=== PATIENT | male | born 1960 | race Caucasian/White ===

== ENCOUNTER → 2016-12-12 | Outpatient (CLI) | payer OTHER | END | disposition home or self-care (01) | LOC: CFH 08:47 | PROVIDERS: ATTEND Physician Assistant | DX: I08.1 Rheumatic disorders of both mitral and tricuspid valves (principal) | CPT/HCPCS: 93306 ==

== ENCOUNTER → 2017-01-26 | Outpatient (CLI) | payer OTHER ==
[~2017-01-26] MED LIST: ALPR1TAB2 PO; ASPI-621 PO; CHOL10003 PO; DICL50PO5 PO; FLUO20TA25 PO; HYDR-3307 PO; HYDR-879 PO; LISI-170 PO; LISI1TAB5 PO; MELO15TA24 PO; OMEG-14 PO; OXYB5TAB7 PO; OXYC-302 PO
[2017-01-26 10:31] LABS: ASPARTATE AMINO TRANSFERASE 11 U/L (15-37); BLOOD UREA NITROGEN 13 mg/dL (7-18)
== END | disposition home or self-care (01) ==
LOC: STAR 09:24
PROVIDERS: ATTEND Orthopaedic Surgery
DX: M75.122 Complete rotator cuff tear or rupture of left shoulder, not specified as traumatic (principal); M75.42 Impingement syndrome of left shoulder
CPT/HCPCS: 36415; 80053

== ENCOUNTER 2017-01-30 05:49 | Inpatient (IN) | payer OTHER ==
[~2017-01-30] VITALS: Ht 172.7 cm; Wt 107.3 kg
[~2017-01-30 05:49] MED LIST changes: -ALPR1TAB2 PO; -DICL50PO5 PO; -HYDR-879 PO; -LISI1TAB5 PO; -MELO15TA24 PO; -OXYC-302 PO
[2017-01-30] MEDS ORDERED: FENTANYL PF 100 MCG/2ML ONE ×3 (06:06→09:44)
[2017-01-30] MEDS ORDERED: MIDAZOLAM 1 MG/ML, 2ML ONE (06:07)
[2017-01-30] MEDS ORDERED: LACTATED RINGERS 1,000 ML IV SCH (06:11)
[2017-01-30] MEDS ORDERED: BUPIVACAINE/PF 0.5% ONE ×2 (06:12→08:47)
[2017-01-30] MEDS ORDERED: LIDOCAINE/PF 1%, 30ML ONE (06:12)
[2017-01-30] MEDS ORDERED: EPINEPHRINE 1 MG/ML, 1ML ONE (06:13)
[2017-01-30 06:29] VITALS: BP 163/68
[2017-01-30] MEDS ORDERED: HYDROcodone/APAP 10/325 MG TABLET PO SCH (07:00)
[2017-01-30] MEDS ORDERED: PROPOFOL 10 MG/ML, 20ML ONE (07:20)
[2017-01-30] MEDS ORDERED: SUCCINYLCHOLINE 20 MG/ML, 10ML ONE (07:20)
[2017-01-30] MEDS ORDERED: CEFAZOLIN 1,000 MG ONE (07:20)
[2017-01-30] MEDS ORDERED: DEXAMETHASONE 4 MG/ML, 1ML ONE (07:20)
[2017-01-30] MEDS ORDERED: ROCURONIUM 10 MG/ML,10ML ONE (07:20)
[2017-01-30] MEDS ORDERED: ONDANSETRON 2MG/ML, 2ML ONE (07:20)
[2017-01-30] MEDS ORDERED: EPHEDRINE 50 MG/ML, 1ML ONE (07:20)
[2017-01-30] MEDS ORDERED: NEOSTIGMINE 1 MG/ML, 10ML ONE (07:20)
[2017-01-30] MEDS ORDERED: GLYCOPYRROLATE 0.2MG/1ML, 5ML ONE (07:20)
[2017-01-30] MEDS ORDERED: LIDOCAINE 1%-EPI 1:100K, 30ML INFIL ONE (07:29)
[2017-01-30] MEDS ORDERED: BUPIVACAINE/PF-EPI 0.5% 1:200K INFIL ONE (07:30)
[2017-01-30] MEDS ORDERED: DIAZEPAM 5 MG/ML, 2ML IVPush PRN (08:00)
[2017-01-30] MEDS ORDERED: EPHEDRINE 50 MG/ML, 1ML IVPush PRN (08:00)
[2017-01-30] MEDS ORDERED: MEPERIDINE/PF 25MG/0.5ML IVPush PRN (08:00)
[2017-01-30] MEDS ORDERED: hydrALAzine 20 MG/ML, 1ML IV PRN (08:00)
[2017-01-30] MEDS ORDERED: HYDROmorphone 1 MG/ML, 1ML IV PRN (08:00)
[2017-01-30] MEDS ORDERED: HYDROcodone/APAP 7.5-325MG/15ML UDC PO PRN (08:00)
[2017-01-30] MEDS ORDERED: PROMETHAZINE 25 MG/ML, 1ML IV PRN (08:00)
[2017-01-30] MEDS ORDERED: LABETALOL 5MG/ML, 20ML IV PRN (08:00)
[2017-01-30] MEDS ORDERED: OXYcodone 5 MG/5 ML ORAL.SOL UDC PO PRN (08:00)
[2017-01-30] MEDS ORDERED: METOPROLOL 1 MG/ML, 5ML IV PRN (08:00)
[2017-01-30] MEDS ORDERED: ALBUTEROL SULFATE 2.5 MG/3 ML NPPB PRN (08:00)
[2017-01-30] MEDS ORDERED: MIDAZOLAM 1 MG/ML, 2ML IV PRN (08:00)
[2017-01-30] MEDS ORDERED: ACETAMINOPHEN 325 MG TABLET PO PRN (08:00)
[2017-01-30] MEDS ORDERED: FENTANYL PF 100 MCG/2ML IV PRN (08:00)
[2017-01-30] MEDS ORDERED: ONDANSETRON 2MG/ML, 2ML IVPush PRN ×2 (08:00→15:00)
[2017-01-30] MEDS ORDERED: LIDOCAINE-MPF 2% ,5ML ONE ×2 (08:47)
[2017-01-30] MEDS ORDERED: OXYBUTYNIN CHLORIDE 5 MG TABLET PO SCH (09:00)
[2017-01-30] MEDS ORDERED: OXYcodone 5 MG/5 ML ORAL.SOL UDC ONE (09:44)
[2017-01-30] MEDS ORDERED: ACETAMINOPHEN 650 MG/20.3 ML UDC ONE (09:44)
[2017-01-30] MEDS ORDERED: MEPERIDINE/PF 25MG/0.5ML ONE (09:57)
[2017-01-30 13:31] VITALS: BP 180/93
[2017-01-30] MEDS ORDERED: GUAIFENESIN/DM 200-20MG, 10ML UDC PO PRN (15:00)
[2017-01-30] MEDS ORDERED: ONDANSETRON ODT 4 MG PO PRN (15:00)
[2017-01-30] MEDS: ENOXAPARIN 40 MG/0.4 ML SQ SCH (15:00)
[2017-01-30 15:21] LABS: HEMATOCRIT 42.8 % (39.2-51.8); HEMOGLOBIN 14.4 g/dL (13.7-18.0); WHITE BLOOD COUNT 12.9 x10^3/uL (3.4-10)
[2017-01-30] MEDS ORDERED: MORPHINE SULFATE 4 MG/ML, 1ML IVPush ONE (15:30)
[2017-01-30] MEDS ORDERED: LORazepam 2 MG/ML, 1ML IVPush ONE (15:30)
[2017-01-30 15:34] LABS: BLOOD UREA NITROGEN 17 mg/dL (7-18)
[2017-01-30 15:43] LABS: ASPARTATE AMINO TRANSFERASE 17 U/L (15-37)
[2017-01-30] MEDS ORDERED: LISI1TAB5 PO (15:49)
[2017-01-30] MEDS ORDERED: ALPR1TAB2 PO (15:49)
[2017-01-30] MEDS ORDERED: HYDR-879 PO (15:49)
[2017-01-30] MEDS ORDERED: OXYC-302 PO (15:49)
[2017-01-30] MEDS ORDERED: OMNIPAQUE 350 MG/ML, 100ML BOTTLE ONE (16:19)
[2017-01-30] MEDS ORDERED: ASPIRIN 325 MG TABLET PO ONE (17:00)
[2017-01-30] MEDS: ASPIRIN 81 MG TABLET EC PO SCH (17:43)
[2017-01-30] MEDS: AMPICILLIN/SULBACTAM 3 GM in SODIUM CHLORIDE 0.9% 100 ML IV SCH ×2 (17:57→23:39)
[2017-01-30] MEDS: SODIUM CHLORIDE 0.9% 1,000 ML IV SCH (17:57)
[2017-01-30] MEDS: LISINOPRIL 20 MG TABLET PO SCH (19:18)
[2017-01-30] MEDS: FLUOXETINE 20 MG CAPSULE PO SCH (19:19)
[2017-01-30] MEDS: CHOLECALCIFEROL 1,000 UNIT TABLET PO SCH (19:19)
[2017-01-30] MEDS ORDERED: DICL50PO5 PO (19:27)
[2017-01-30] MEDS ORDERED: MELO15TA24 PO (19:29)
[2017-01-30] MEDS: DOXYCYCLINE 100MG TABLET PO SCH (19:30)
[2017-01-30] MEDS: ATORVASTATIN 40 MG TABLET PO SCH (19:30)
[2017-01-30 20:45] VITALS: BP 181/85
[2017-01-30] MEDS ORDERED: LABETALOL 5MG/ML, 20ML IVPush ONE (21:30)
[2017-01-30] MEDS ORDERED: ENALAPRILAT 1.25 MG/ML, 2ML IV ONE (23:30)
[2017-01-30 23:39] VITALS: BP 200/100
[2017-01-31] VITALS (13 sets, daily range): BP systolic 149–211; BP diastolic 84–110
[2017-01-31] MEDS ORDERED: MORPHINE SULFATE 4 MG/ML, 1ML IVPush PRN (02:30)
[2017-01-31] MEDS ORDERED: hydrALAzine 20 MG/ML, 1ML IV ONE (02:30)
[2017-01-31] MEDS ORDERED: cloniDINE 0.1MG PATCH TD SCH (02:30)
[2017-01-31] MEDS: HALOPERIDOL 5 MG/ML IM PRN ×2 (04:43→13:44)
[2017-01-31] MEDS: AMPICILLIN/SULBACTAM 3 GM in SODIUM CHLORIDE 0.9% 100 ML IV SCH ×4 (04:55→23:00)
[2017-01-31 05:57] LABS: HEMATOCRIT 40.2 % (39.2-51.8); HEMOGLOBIN 13.8 g/dL (13.7-18.0); WHITE BLOOD COUNT 14.7 x10^3/uL (3.4-10)
[2017-01-31 06:26] LABS: ASPARTATE AMINO TRANSFERASE 23 U/L (15-37); BLOOD UREA NITROGEN 13 mg/dL (7-18)
[2017-01-31] MEDS: DOXYCYCLINE 100MG TABLET PO SCH ×2 (08:29→20:33)
[2017-01-31] MEDS: LISINOPRIL 20 MG TABLET PO SCH ×2 (08:29→20:34)
[2017-01-31] MEDS: ASPIRIN 81 MG TABLET EC PO SCH (08:29)
[2017-01-31] MEDS: FLUOXETINE 20 MG CAPSULE PO SCH (08:29)
[2017-01-31] MEDS: CHOLECALCIFEROL 1,000 UNIT TABLET PO SCH (08:29)
[2017-01-31] MEDS: SODIUM CHLORIDE 0.9% 1,000 ML IV SCH (08:29)
[2017-01-31] MEDS ORDERED: LABETALOL 5MG/ML, 20ML IVPush PRN (08:30)
[2017-01-31] MEDS ORDERED: LORazepam 2 MG/ML, 1ML IVPush ONE (10:00)
[2017-01-31] MEDS ORDERED: POTASSIUM CHLORIDE 20 MEQ TAB.ER.PRT PO ONE (11:00)
[2017-01-31] MEDS ORDERED: AMLODIPINE 5 MG TABLET PO SCH (12:00)
[2017-01-31] MEDS: ENOXAPARIN 40 MG/0.4 ML SQ SCH (15:18)
[2017-01-31] MEDS: ENALAPRILAT 1.25 MG/ML, 2ML IV PRN (15:18)
[2017-01-31] MEDS: CHLORTHALIDONE 25 MG TABLET PO SCH (16:02)
[2017-01-31] MEDS ORDERED: morphine SULFATE 10 MG/ML, 1ML ONE (16:57)
[2017-01-31] MEDS: LABETALOL 5MG/ML, 20ML IVPush PRN (17:02)
[2017-01-31] MEDS: MORPHINE SULFATE 4 MG/ML, 1ML IVPush PRN ×2 (17:03→20:33)
[2017-01-31] MEDS: HYDROcodone/APAP 10/325 MG TABLET PO PRN (17:34)
[2017-01-31] MEDS: ATORVASTATIN 40 MG TABLET PO SCH (20:34)
[2017-02-01] VITALS (17 sets, daily range): BP systolic 116–205; BP diastolic 63–119
[2017-02-01] MEDS: ENALAPRILAT 1.25 MG/ML, 2ML IV PRN (00:44)
[2017-02-01] MEDS: HYDROcodone/APAP 10/325 MG TABLET PO PRN ×3 (00:44→21:10)
[2017-02-01] MEDS: MORPHINE SULFATE 4 MG/ML, 1ML IVPush PRN ×4 (02:50→22:50)
[2017-02-01] MEDS: LABETALOL 5MG/ML, 20ML IVPush PRN (03:00)
[2017-02-01] MEDS ORDERED: DILTIAZEM 5 MG/ML, 5ML IVPush ONE ×2 (04:00→08:30)
[2017-02-01] MEDS: AMPICILLIN/SULBACTAM 3 GM in SODIUM CHLORIDE 0.9% 100 ML IV SCH ×4 (04:49→23:21)
[2017-02-01] MEDS ORDERED: DILTIAZEM 125 MG in SODIUM CHLORIDE 0.9% 100 ML IV SCH (05:00)
[2017-02-01] MEDS ORDERED: POTASSIUM CHLORIDE 20 MEQ TAB.ER.PRT PO ONE (08:00)
[2017-02-01 08:15] LABS: PATH.CAST-FLAG NOT PRESENT; SPERM-FLAG NOT PRESENT; SRC-FLAG NOT PRESENT; XTAL-FLAG NOT PRESENT; YLC-FLAG NOT PRESENT
[2017-02-01 08:30] LABS: BLOOD UREA NITROGEN 16 mg/dL (7-18)
[2017-02-01 08:55] LABS: HEMATOCRIT 47.5 % (39.2-51.8); HEMOGLOBIN 16.4 g/dL (13.7-18.0); WHITE BLOOD COUNT 19.2 x10^3/uL (3.4-10)
[2017-02-01 08:57] LABS: ASPARTATE AMINO TRANSFERASE 51 U/L (15-37)
[2017-02-01 09:04] LABS: IS PT STATUS REG ER OR PRE ER? NO
[2017-02-01] MEDS ORDERED: HEPARIN 25,000 UNITS/500ML PMX 500 ML IV PRN ×2 (09:30→11:30)
[2017-02-01] MEDS ORDERED: HEPARIN 5,000 UNITS/ML, 1ML IV ONE (11:30)
[2017-02-01] MEDS: LISINOPRIL 20 MG TABLET PO SCH ×2 (11:41→21:10)
[2017-02-01] MEDS: CHLORTHALIDONE 25 MG TABLET PO SCH (11:43)
[2017-02-01] MEDS: FLUOXETINE 20 MG CAPSULE PO SCH (11:43)
[2017-02-01] MEDS: ASPIRIN 81 MG TABLET EC PO SCH (11:45)
[2017-02-01] MEDS: CHOLECALCIFEROL 1,000 UNIT TABLET PO SCH (11:45)
[2017-02-01] MEDS: DOXYCYCLINE 100MG TABLET PO SCH ×2 (11:45→21:10)
[2017-02-01] MEDS: POTASSIUM CHLORIDE 20 MEQ, MAGNESIUM SULFATE 1 GM, MVI ADULT 10 ML, THIAMINE 100 MG, FO... IV SCH (13:25)
[2017-02-01] MEDS ORDERED: AMIODARONE 150 MG in DEXTROSE 5% 100 ML IV ONE (18:00)
[2017-02-01] MEDS ORDERED: FILTER 0.22 MICRON FOR AMIODARONE IV PRN (18:00)
[2017-02-01] MEDS ORDERED: AMIODARONE 900 MG in DEXTROSE 5% 482 ML IV PRN (18:00)
[2017-02-01] MEDS: ATORVASTATIN 40 MG TABLET PO SCH (21:10)
[2017-02-01] MEDS: HEPARIN 5,000 UNITS/ML, 1ML IV PRN (21:12)
[2017-02-01] MEDS: D5%-0.9% NACL 1,000 ML IV SCH (23:13)
[2017-02-02 01:34] VITALS: BP 152/84
[2017-02-02] MEDS ORDERED: KETOROLAC 30 MG/1 ML IVPush SCH (02:30)
[2017-02-02 03:34] LABS: HEMATOCRIT 43.2 % (39.2-51.8); HEMOGLOBIN 14.8 g/dL (13.7-18.0); WHITE BLOOD COUNT 17.2 x10^3/uL (3.4-10)
[2017-02-02 03:48] LABS: ASPARTATE AMINO TRANSFERASE 34 U/L (15-37); BLOOD UREA NITROGEN 24 mg/dL (7-18)
[2017-02-02] MEDS: D5%-0.9% NACL 1,000 ML IV SCH (04:43)
[2017-02-02] MEDS: AMPICILLIN/SULBACTAM 3 GM in SODIUM CHLORIDE 0.9% 100 ML IV SCH ×3 (04:50→18:17)
[2017-02-02] MEDS ORDERED: DILTIAZEM 125 MG in SODIUM CHLORIDE 0.9% 100 ML IV SCH (05:00)
[2017-02-02] MEDS: HEPARIN 5,000 UNITS/ML, 1ML IV PRN (05:18)
[2017-02-02] MEDS: MORPHINE SULFATE 4 MG/ML, 1ML IVPush PRN ×4 (05:19→21:31)
[2017-02-02 06:33] VITALS: BP 161/101
[2017-02-02] MEDS: ENALAPRILAT 1.25 MG/ML, 2ML IV PRN (06:44)
[2017-02-02] MEDS ORDERED: POTASSIUM CHLORIDE 20 MEQ TAB.ER.PRT PO ONE (08:30)
[2017-02-02] MEDS: AMLODIPINE 5 MG TABLET PO SCH (09:50)
[2017-02-02] MEDS: CHOLECALCIFEROL 1,000 UNIT TABLET PO SCH (09:50)
[2017-02-02] MEDS: DOXYCYCLINE 100MG TABLET PO SCH ×2 (09:50→21:32)
[2017-02-02] MEDS: CHLORTHALIDONE 25 MG TABLET PO SCH (09:50)
[2017-02-02] MEDS: ASPIRIN 81 MG TABLET EC PO SCH (09:50)
[2017-02-02] MEDS: LISINOPRIL 20 MG TABLET PO SCH ×2 (09:51→21:32)
[2017-02-02] MEDS: FLUOXETINE 20 MG CAPSULE PO SCH (09:51)
[2017-02-02] MEDS ORDERED: ENOXAPARIN 40 MG/0.4 ML SQ SCH (11:00)
[2017-02-02] MEDS: AMIODARONE 200 MG TABLET PO SCH ×2 (12:27→21:31)
[2017-02-02 13:33] VITALS: BP 163/85
[2017-02-02] MEDS ORDERED: D5%-0.9% NACL 1,000 ML IV SCH (14:30)
[2017-02-02] MEDS: POTASSIUM CHLORIDE 20 MEQ, MAGNESIUM SULFATE 1 GM, MVI ADULT 10 ML, THIAMINE 100 MG, FO... IV SCH (14:32)
[2017-02-02] MEDS: HEPARIN 25,000 UNITS/500ML PMX 500 ML IV PRN (18:25)
[2017-02-02 20:03] VITALS: BP 175/93
[2017-02-02] MEDS: ATORVASTATIN 40 MG TABLET PO SCH (21:32)
[2017-02-03] MEDS: AMPICILLIN/SULBACTAM 3 GM in SODIUM CHLORIDE 0.9% 100 ML IV SCH ×4 (00:39→18:14)
[2017-02-03] MEDS: HEPARIN 5,000 UNITS/ML, 1ML IV PRN ×3 (01:33→15:52)
[2017-02-03] MEDS: MORPHINE SULFATE 4 MG/ML, 1ML IVPush PRN ×5 (01:34→23:05)
[2017-02-03 02:28] VITALS: BP 174/91
[2017-02-03] MEDS: HYDROcodone/APAP 10/325 MG TABLET PO PRN ×2 (04:01→16:45)
[2017-02-03 06:33] LABS: HEMATOCRIT 44.3 % (39.2-51.8); HEMOGLOBIN 14.8 g/dL (13.7-18.0); WHITE BLOOD COUNT 13.9 x10^3/uL (3.4-10)
[2017-02-03 06:43] LABS: ASPARTATE AMINO TRANSFERASE 28 U/L (15-37); BLOOD UREA NITROGEN 17 mg/dL (7-18)
[2017-02-03 07:03] VITALS: BP 152/90
[2017-02-03] MEDS ORDERED: POTASSIUM CHLORIDE 20 MEQ TAB.ER.PRT PO ONE ×2 (08:00→10:30)
[2017-02-03] MEDS: DOXYCYCLINE 100MG TABLET PO SCH ×2 (09:00→22:31)
[2017-02-03] MEDS: AMLODIPINE 5 MG TABLET PO SCH (09:00)
[2017-02-03] MEDS: CHOLECALCIFEROL 1,000 UNIT TABLET PO SCH (09:30)
[2017-02-03] MEDS: ASPIRIN 81 MG TABLET EC PO SCH (09:31)
[2017-02-03] MEDS: AMIODARONE 200 MG TABLET PO SCH ×2 (09:31→22:32)
[2017-02-03] MEDS: LISINOPRIL 20 MG TABLET PO SCH ×2 (09:31→22:32)
[2017-02-03] MEDS: CHLORTHALIDONE 25 MG TABLET PO SCH (09:31)
[2017-02-03] MEDS: FLUOXETINE 20 MG CAPSULE PO SCH (09:32)
[2017-02-03] MEDS: POTASSIUM CHLORIDE 20 MEQ, MAGNESIUM SULFATE 1 GM, MVI ADULT 10 ML, THIAMINE 100 MG, FO... IV SCH (10:39)
[2017-02-03] MEDS: DOCUSATE 100 MG CAPSULE PO SCH ×2 (10:39→22:31)
[2017-02-03] MEDS: CARVEDILOL 6.25 MG TABLET PO SCH ×2 (11:02→18:14)
[2017-02-03] MEDS ORDERED: LORazepam 2 MG/ML, 1ML IVPush ONE (11:30)
[2017-02-03] MEDS ORDERED: LORazepam 2 MG/ML, 1ML IVPush PRN (11:30)
[2017-02-03] MEDS ORDERED: GADOBUTROL 10 MMOL/10 ML PFS ONE (13:11)
[2017-02-03 14:00] VITALS: BP 137/78
[2017-02-03] MEDS: HEPARIN 25,000 UNITS/500ML PMX 500 ML IV PRN (18:58)
[2017-02-03 19:21] VITALS: BP 122/77
[2017-02-03] MEDS: ATORVASTATIN 40 MG TABLET PO SCH (22:32)
[2017-02-04] MEDS: AMPICILLIN/SULBACTAM 3 GM in SODIUM CHLORIDE 0.9% 100 ML IV SCH ×4 (01:26→21:04)
[2017-02-04 02:45] VITALS: BP 159/73
[2017-02-04 04:47] LABS: BLOOD UREA NITROGEN 18 mg/dL (7-18)
[2017-02-04 04:51] LABS: ASPARTATE AMINO TRANSFERASE 30 U/L (15-37)
[2017-02-04] MEDS: CARVEDILOL 6.25 MG TABLET PO SCH ×2 (05:28→17:33)
[2017-02-04 06:03] LABS: HEMATOCRIT 44.3 % (39.2-51.8); HEMOGLOBIN 15.3 g/dL (13.7-18.0); WHITE BLOOD COUNT 12.5 x10^3/uL (3.4-10)
[2017-02-04] MEDS: DOXYCYCLINE 100MG TABLET PO SCH ×2 (08:02→21:05)
[2017-02-04] MEDS: LISINOPRIL 20 MG TABLET PO SCH ×2 (08:03→21:04)
[2017-02-04] MEDS: ASPIRIN 81 MG TABLET EC PO SCH (08:03)
[2017-02-04] MEDS: CHOLECALCIFEROL 1,000 UNIT TABLET PO SCH (08:04)
[2017-02-04] MEDS: FLUOXETINE 20 MG CAPSULE PO SCH (08:04)
[2017-02-04] MEDS: AMLODIPINE 5 MG TABLET PO SCH (08:04)
[2017-02-04] MEDS: AMIODARONE 200 MG TABLET PO SCH ×2 (08:04→21:04)
[2017-02-04] MEDS: DOCUSATE 100 MG CAPSULE PO SCH ×2 (08:05→21:05)
[2017-02-04] MEDS: CHLORTHALIDONE 25 MG TABLET PO SCH (09:00)
[2017-02-04 10:08] VITALS: BP 130/79
[2017-02-04] MEDS: POTASSIUM CHLORIDE 20 MEQ, MAGNESIUM SULFATE 1 GM, MVI ADULT 10 ML, THIAMINE 100 MG, FO... IV SCH (11:20)
[2017-02-04] MEDS: MORPHINE SULFATE 4 MG/ML, 1ML IVPush PRN ×3 (11:38→23:52)
[2017-02-04 15:48] VITALS: BP 164/96
[2017-02-04] MEDS ORDERED: HEPARIN wt. based STROKE protocol MC PRN (16:00)
[2017-02-04] MEDS ORDERED: HEPARIN 25,000 UNITS/500ML PMX 500 ML IV PRN ×2 (16:00)
[2017-02-04 19:42] VITALS: BP 124/72
[2017-02-04] MEDS: ATORVASTATIN 40 MG TABLET PO SCH (21:05)
[2017-02-04] MEDS: CIPROFLOXACIN OPHTH SOLN 0.3%, 5ML EACHEYE SCH (23:07)
[2017-02-05] MEDS: OXYcodone/APAP 10/325MG TABLET PO PRN ×4 (01:23→22:30)
[2017-02-05] MEDS: AMPICILLIN/SULBACTAM 3 GM in SODIUM CHLORIDE 0.9% 100 ML IV SCH ×3 (01:29→14:14)
[2017-02-05 01:30] VITALS: BP 161/74
[2017-02-05] MEDS: CARVEDILOL 6.25 MG TABLET PO SCH ×2 (06:11→17:57)
[2017-02-05] MEDS: CIPROFLOXACIN OPHTH SOLN 0.3%, 5ML EACHEYE SCH ×5 (06:12→20:20)
[2017-02-05] MEDS: MORPHINE SULFATE 4 MG/ML, 1ML IVPush PRN ×2 (06:32→12:30)
[2017-02-05 07:54] LABS: HEMATOCRIT 41.8 % (39.2-51.8); HEMOGLOBIN 14.5 g/dL (13.7-18.0); WHITE BLOOD COUNT 13.6 x10^3/uL (3.4-10)
[2017-02-05 08:02] LABS: BLOOD UREA NITROGEN 18 mg/dL (7-18)
[2017-02-05 08:10] VITALS: BP 135/77
[2017-02-05] MEDS: FLUOXETINE 20 MG CAPSULE PO SCH (08:57)
[2017-02-05] MEDS: DOXYCYCLINE 100MG TABLET PO SCH ×2 (08:57→20:19)
[2017-02-05] MEDS: CHOLECALCIFEROL 1,000 UNIT TABLET PO SCH (08:57)
[2017-02-05] MEDS: LISINOPRIL 20 MG TABLET PO SCH ×2 (08:58→20:17)
[2017-02-05] MEDS: AMLODIPINE 5 MG TABLET PO SCH ×2 (08:59→20:19)
[2017-02-05] MEDS: CHLORTHALIDONE 25 MG TABLET PO SCH (09:00)
[2017-02-05] MEDS: DOCUSATE 100 MG CAPSULE PO SCH ×2 (09:00→20:18)
[2017-02-05] MEDS: AMIODARONE 200 MG TABLET PO SCH ×2 (09:00→20:18)
[2017-02-05] MEDS: ASPIRIN 81 MG TABLET EC PO SCH (09:01)
[2017-02-05] MEDS: APIXABAN 5 MG TABLET PO SCH ×2 (10:15→20:18)
[2017-02-05] MEDS ORDERED: ATOR40TA78 PO (12:13)
[2017-02-05] MEDS ORDERED: LISI-170 PO (12:13)
[2017-02-05] MEDS ORDERED: FLUO20CA8 PO (12:13)
[2017-02-05] MEDS ORDERED: ASPI-621 PO (12:13)
[2017-02-05] MEDS ORDERED: AMLO5TAB2 PO (12:13)
[2017-02-05] MEDS ORDERED: AMIO200T42 PO (12:13)
[2017-02-05] MEDS ORDERED: APIX5TAB PO (12:13)
[2017-02-05] MEDS ORDERED: CHLO25TA PO (12:14)
[2017-02-05 12:31] VITALS: BP 158/83
[2017-02-05] MEDS ORDERED: AMOX1TAB64 PO (14:24)
[2017-02-05 17:56] VITALS: BP 157/94
[2017-02-05 19:45] VITALS: BP 134/76
[2017-02-05] MEDS: ATORVASTATIN 40 MG TABLET PO SCH (20:17)
[2017-02-05] MEDS: AMOXICILLIN/CLAV 875-125MG TABLET PO SCH (20:18)
[2017-02-06] MEDS ORDERED: LORazepam 0.5MG TABLET PO PRN (02:00)
[2017-02-06 04:49] VITALS: BP 131/76
[2017-02-06] MEDS: OXYcodone/APAP 10/325MG TABLET PO PRN ×2 (05:14→12:07)
[2017-02-06] MEDS: CIPROFLOXACIN OPHTH SOLN 0.3%, 5ML EACHEYE SCH ×3 (05:15→14:57)
[2017-02-06 05:37] LABS: HEMATOCRIT 42.5 % (39.2-51.8); HEMOGLOBIN 14.6 g/dL (13.7-18.0); WHITE BLOOD COUNT 13.8 x10^3/uL (3.4-10)
[2017-02-06 05:50] LABS: ASPARTATE AMINO TRANSFERASE 29 U/L (15-37); BLOOD UREA NITROGEN 22 mg/dL (7-18)
[2017-02-06] MEDS: CARVEDILOL 6.25 MG TABLET PO SCH (05:57)
[2017-02-06 08:00] VITALS: BP 130/76
[2017-02-06 08:30] VITALS: BP 130/76
[2017-02-06 10:00] VITALS: BP 151/86
[2017-02-06] MEDS: AMOXICILLIN/CLAV 875-125MG TABLET PO SCH (10:00)
[2017-02-06] MEDS: AMIODARONE 200 MG TABLET PO SCH (10:01)
[2017-02-06] MEDS: DOCUSATE 100 MG CAPSULE PO SCH (10:01)
[2017-02-06] MEDS: CHLORTHALIDONE 25 MG TABLET PO SCH (10:01)
[2017-02-06] MEDS: AMLODIPINE 5 MG TABLET PO SCH (10:01)
[2017-02-06] MEDS: CHOLECALCIFEROL 1,000 UNIT TABLET PO SCH (10:02)
[2017-02-06] MEDS: LISINOPRIL 20 MG TABLET PO SCH (10:02)
[2017-02-06] MEDS: FLUOXETINE 20 MG CAPSULE PO SCH (10:02)
[2017-02-06] MEDS: APIXABAN 5 MG TABLET PO SCH (10:02)
[2017-02-06] MEDS: DOXYCYCLINE 100MG TABLET PO SCH (10:05)
[2017-02-06 14:25] VITALS: BP 120/67
== END 2017-02-06 17:31 | DRG 28 ==
LOC: OUT 05:49 → 4EST 13:22 → OUT 14:40 → ORIP 14:41 → 4EST 15:19 → 5SO 02-01 08:38
PROVIDERS: ADMIT Orthopaedic Surgery; ATTEND Orthopaedic Surgery
PROC: 0LS44ZZ Reposition Left Upper Arm Tendon, Percutaneous Endoscopic Approach (ICD-10-PCS; 2017-01-30)
PROC: 0RNK4ZZ Release Left Shoulder Joint, Percutaneous Endoscopic Approach (ICD-10-PCS; 2017-01-30)
PROC: 0LN24ZZ Release Left Shoulder Tendon, Percutaneous Endoscopic Approach (ICD-10-PCS; 2017-01-30)
PROC: 0PBB4ZZ Excision of Left Clavicle, Percutaneous Endoscopic Approach (ICD-10-PCS; 2017-01-30)
PROC: 0RBK4ZZ Excision of Left Shoulder Joint, Percutaneous Endoscopic Approach (ICD-10-PCS; 2017-01-30)
PROC: 0LQ24ZZ Repair Left Shoulder Tendon, Percutaneous Endoscopic Approach (ICD-10-PCS; principal; 2017-01-30 07:00)
DX: I63.512 Cerebral infarction due to unspecified occlusion or stenosis of left middle cerebral artery (principal); G93.41 Metabolic encephalopathy; D68.69 Other thrombophilia; N13.30 Unspecified hydronephrosis; E44.1 Mild protein-calorie malnutrition; I11.0 Hypertensive heart disease with heart failure; I50.30 Unspecified diastolic (congestive) heart failure; R47.01 Aphasia; I48.0 Paroxysmal atrial fibrillation; M75.102 Unspecified rotator cuff tear or rupture of left shoulder, not specified as traumatic; R41.3 Other amnesia; E78.5 Hyperlipidemia, unspecified; M19.90 Unspecified osteoarthritis, unspecified site; G89.29 Other chronic pain; M75.20 Bicipital tendinitis, unspecified shoulder; M65.9 Synovitis and tenosynovitis, unspecified; F17.210 Nicotine dependence, cigarettes, uncomplicated; I16.0 Hypertensive urgency; K76.0 Fatty (change of) liver, not elsewhere classified; N40.0 Benign prostatic hyperplasia without lower urinary tract symptoms; F32.9 Major depressive disorder, single episode, unspecified; G43.909 Migraine, unspecified, not intractable, without status migrainosus; H53.9 Unspecified visual disturbance; R56.9 Unspecified convulsions; Z79.01 Long term (current) use of anticoagulants; Z79.899 Other long term (current) drug therapy; Z82.0 Family history of epilepsy and other diseases of the nervous system; Z83.3 Family history of diabetes mellitus; Z68.36 Body mass index [BMI] 36.0-36.9, adult; M19.012 Primary osteoarthritis, left shoulder
CPT/HCPCS: 36415; 70450; 70544; 70547; 70553; 71010; 71275; 76700; 80048; 80053; 80061; 81001; 82140; 82607; 82746; 83036; 83735; 84100; 84439; 84443; 84484; 85025; 85520; 85610; 85651; 85730; 86140; 87040; 93005; 93306; 93880; 95812; A9585; J0171; J0295; J0690; J1100; J1644; J1650; J1885; J2175; J2250; J2405; J2704; J2710; J3010; J3411; J3475; J3480; J3490; J7042; Q9967; 92523-GN; C1713; J0282; J0330; J0360; J1630; J2060; J7030; J7060; J7120